=== PATIENT | male | born 1955 | race Hispanic/Latino ===

== ENCOUNTER → 2024-01-12 | Outpatient (CLI) | payer OTHER ==
[2024-01-12 22:52] VITALS: PULSE 68; RESP 16
[2024-01-12 23:30] VITALS: PULSE 68; RESP 12
[2024-01-13] VITALS (11 sets, daily range): PULSE 62–78; RESP 10–14
== END | disposition home or self-care (01) ==
LOC: SLP 20:22
PROVIDERS: ATTEND Internal Medicine Cardiovascular Disease
DX: G47.33 Obstructive sleep apnea (adult) (pediatric) (principal)
CPT/HCPCS: 95810

== ENCOUNTER → 2024-01-15 | Outpatient (CLI) | payer OTHER ==
[2024-01-15 21:43] VITALS: PULSE 79; RESP 18
[2024-01-15 22:13] VITALS: PULSE 73; RESP 18
[2024-01-15 22:34] VITALS: PULSE 71; RESP 12
[2024-01-15 22:47] VITALS: PULSE 70; RESP 11
[2024-01-15 23:02] VITALS: PULSE 75; RESP 18
[2024-01-15 23:28] VITALS: PULSE 12; PULSE 72; RESP 19
[2024-01-16] VITALS (13 sets, daily range): PULSE 67–73; RESP 10–21
== END | disposition home or self-care (01) ==
LOC: EDUNIT# 01-12 20:30 → SLP 20:25
PROVIDERS: ATTEND Internal Medicine Cardiovascular Disease
DX: G47.33 Obstructive sleep apnea (adult) (pediatric) (principal)
CPT/HCPCS: 95811